=== PATIENT | female | born 1960 | race African-American/Black ===

== ENCOUNTER 2020-05-19 18:09 | Emergency (ER) | payer OTHER ==
[~2020-05-19] VITALS: Ht 162.6 cm; Wt 68.0 kg
[2020-05-19 18:10] VITALS: BP 151/77
== END 2020-05-19 18:54 | disposition home or self-care (01) ==
LOC: ER 18:09
DX: T63.461A Toxic effect of venom of wasps, accidental (unintentional), initial encounter (principal); M79.642 Pain in left hand; I10 Essential (primary) hypertension; Y92.89 Other specified places as the place of occurrence of the external cause

== ENCOUNTER 2020-06-20 16:20 | Emergency (ER) | payer OTHER ==
[~2020-06-20] VITALS: Ht 165.1 cm; Wt 66.7 kg
[2020-06-20 17:12] LABS: HEMATOCRIT 38.4 % (37.0-47.0); HEMOGLOBIN 12.7 gm/dL (12.0-15.0); MCH 30.3 pg (26.0-34.0); MCHC 33.2 g/dL (28.0-37.0); MCV 91.4 fL (80.0-100.0); RBC 4.2 mil/uL (4.20-5.00); RDW 13.1 % (10.5-14.5); WBC 6.5 thou/uL (4.0-11.0)
[2020-06-20 17:20] LABS: ANION GAP 7 mmol/L (7-16); BUN 11 mg/dL (7-18); CALCIUM 9.9 mg/dL (8.5-10.1); CHLORIDE 107 mmol/L (98-107); CO2 29 mmol/L (21-32); CREATININE 0.7 mg/dL (0.6-1.0); GLUCOSE 96 mg/dL (74-106); POTASSIUM 3.8 mmol/L (3.5-5.1); SODIUM 143 mmol/L (136-145)
[2020-06-20] MEDS ORDERED: ATORVASTATIN CA10 MG PO (17:21)
[2020-06-20] MEDS ORDERED: BENTYL 10 MG CA10 M1 PO (17:22)
[2020-06-20] MEDS ORDERED: PERCOCET 10-321 EACH PO (17:22)
[2020-06-20] MEDS ORDERED: CARVEDILOL6.25 M1 PO (17:22)
[2020-06-20] MEDS ORDERED: PEPCID AC20 MG PO (17:23)
[2020-06-20 17:26] LABS: ALBUMIN 3.9 g/dL (3.4-5.0); DIRECT BILIRUBIN < 0.1 mg/dL (<0.1-0.2); SGOT 24 U/L (15-37); SGPT 24 U/L (30-65); TOTAL BILIRUBIN 0.4 mg/dL (0.2-1.0); TOTAL PROTEIN 8.2 g/dL (6.4-8.2)
[2020-06-20 17:30] LABS: APTT 24.3 Seconds (24.5-32.8); INR 1.1; PROTIME 10.8 Seconds (9.3-11.4)
[2020-06-20] MEDS ORDERED: CIPRO500 MG PO (20:05)
[2020-06-20] MEDS ORDERED: FLAGYL500 M1 PO (20:05)
[2020-06-20] MEDS ORDERED: ACETAMINOP-CODEI5 ML PO (20:07)
[2020-06-20 20:45] VITALS: BP 141/72
== END 2020-06-20 20:45 | disposition home or self-care (01) ==
LOC: ER 16:20
PROVIDERS: Emergency Medicine
DX: K52.9 Noninfective gastroenteritis and colitis, unspecified (principal); I10 Essential (primary) hypertension; E78.5 Hyperlipidemia, unspecified; Z90.710 Acquired absence of both cervix and uterus; Z79.899 Other long term (current) drug therapy; Z88.8 Allergy status to other drugs, medicaments and biological substances

== ENCOUNTER 2021-05-30 20:01 | Emergency (ER) | payer OTHER ==
[~2021-05-30] VITALS: Ht 165.1 cm; Wt 68.0 kg
[~2021-05-30 20:01] MED LIST: ACETAMINOP-CODEI5 ML PO; ATORVASTATIN CA10 MG PO; BENTYL 10 MG CA10 M1 PO; CARVEDILOL6.25 M1 PO; CIPRO500 MG PO; FLAGYL500 M1 PO; PEPCID AC20 MG PO; PERCOCET 10-321 EACH PO
[2021-05-30] MEDS ORDERED: MEDROLDOSEPACK PO (21:13)
[2021-05-30 21:29] VITALS: BP 152/90
== END 2021-05-30 21:33 | disposition home or self-care (01) ==
LOC: ER 20:01
DX: L25.9 Unspecified contact dermatitis, unspecified cause (principal); I10 Essential (primary) hypertension; E78.00 Pure hypercholesterolemia, unspecified; Z90.710 Acquired absence of both cervix and uterus; Z79.899 Other long term (current) drug therapy; Z88.5 Allergy status to narcotic agent

== ENCOUNTER 2021-06-05 15:35 | Emergency (ER) | payer OTHER ==
[~2021-06-05] VITALS: Ht 165.1 cm; Wt 68.0 kg
[~2021-06-05 15:35] MED LIST changes: +MEDROLDOSEPACK PO
[2021-06-05] MEDS ORDERED: NAPROSYN500 MG PO (16:42)
[2021-06-05] MEDS ORDERED: FLEXERIL PO (16:42)
[2021-06-05 16:50] VITALS: BP 164/89
== END 2021-06-05 16:50 | disposition home or self-care (01) ==
LOC: ER 15:35
DX: S13.9XXA Sprain of joints and ligaments of unspecified parts of neck, initial encounter (principal); I10 Essential (primary) hypertension; E78.00 Pure hypercholesterolemia, unspecified; Z90.710 Acquired absence of both cervix and uterus; Z79.891 Long term (current) use of opiate analgesic; Z79.899 Other long term (current) drug therapy; Z88.8 Allergy status to other drugs, medicaments and biological substances; V89.2XXA Person injured in unspecified motor-vehicle accident, traffic, initial encounter; Y93.89 Activity, other specified; Y92.89 Other specified places as the place of occurrence of the external cause; Y99.8 Other external cause status

== ENCOUNTER 2021-07-15 16:07 | Emergency (ER) | payer OTHER ==
[~2021-07-15] VITALS: Ht 165.1 cm; Wt 68.0 kg
[~2021-07-15 16:07] MED LIST changes: +FLEXERIL PO; +NAPROSYN500 MG PO
[2021-07-15 19:21] VITALS: BP 137/80
== END 2021-07-15 19:22 | disposition home or self-care (01) ==
LOC: ER 16:07
DX: R51.9 Headache, unspecified (principal); I10 Essential (primary) hypertension; E78.00 Pure hypercholesterolemia, unspecified; Z90.710 Acquired absence of both cervix and uterus; Z79.891 Long term (current) use of opiate analgesic; Z79.899 Other long term (current) drug therapy; Z88.8 Allergy status to other drugs, medicaments and biological substances